=== PATIENT | female | born 1990 | race Caucasian/White ===

== ENCOUNTER 2019-05-14 10:30 | Emergency (ER) | payer OTHER, MEDICAID, SELFPAY ==
[2019-05-14 10:56] VITALS: BP 114/71; PULSE 67; RESP 18; TEMP 36.4; O2SAT 98
[2019-05-14 11:36] LABS: Add Manual Diff / Slide Review NO; Basophils Absolute Auto 100 /uL (0-100); Basophils Percent Auto 1.1 % (0-2); Eosinophils Absolute Auto 500 /uL (0-450); Eosinophils Percent Auto 6.9 % (2-4); Hematocrit 41.2 % (36-46); Hemoglobin 14.4 g/dL (12.0-16.0); Lymphocytes Absolute Auto 3300 /uL (1100-4500); Lymphocytes Percent Auto 46.4 % (25-40); Mean Corpuscular HGB Conc 34.9 % (30-36); Mean Corpuscular Volume 82.9 fL (80-100); Monocytes Absolute Auto 500 /uL (0-900); Monocytes Percent Auto 7.6 % (3-14); Neutrophils Absolute Auto 2700 /uL (1500-7000); Platelet Count 275 X10^3/uL (150-400); Red Blood Cell Count 4.96 X10^6/uL (4.0-5.2); Red Cell Distribution Width 13.4 % (11.6-14.8); White Blood Cell Count 7.1 X10^3/uL (4.5-11.0)
[2019-05-14 11:45] LABS: Prothrombin Time 11.5 SECONDS (10.1-12.7)
[2019-05-14 11:46] LABS: Alanine Aminotransferase 27 IU/L (9-52); Albumin 4.8 g/dL (3.5-5.0); Albumin Globulin Ratio 1.3 (1.0-2.8); Alkaline Phosphatase 51 U/L (38-126); Aspartate Aminotransferase 25 IU/L (14-36); Bilirubin Total 0.5 mg/dL (0.2-1.3); Blood Urea Nitrogen 9 mg/dL (7-17); Carbon Dioxide 30 mmol/L (22-32); Chloride 100 mmol/L (98-107); Estimated Glomerular Filt Rate > 60.0 mL/min (>60); Globulin 3.7 g/dL (1.7-4.1); Glucose 102 mg/dL (70-100); HEMOLYSIS < 15 (0-50); Lipase 38 U/L (23-300); Potassium 4.2 mmol/L (3.4-5.1); Sodium 141 mmol/L (137-145); Total Protein 8.5 g/dL (6.3-8.2)
[2019-05-14 11:47] LABS: PTT Partial Thromboplastin Tim 35 SECONDS (26.4-36.2)
--- NOTE | 2019-05-14 12:04 | ED_ITS ---
HPI - Nausea/Vomiting/Diarrhea <CHANG Youssef - Last Filed: 05/14/19 21:23> General Chief complaint: Nausea/Vomiting/Diarrhea Stated complaint: vomiting,light headed, diarrhea,weakness Time Seen by Provider: 05/14/19 11:43 Source: patient Mode of arrival: Ambulatory Limitations: no limitations History of Present Illness HPI Narrative: 28-year-old female with a history of anxiety, presents emergency department today complaining of nausea, vomiting, diarrhea, and epigastric pain for the past 3 months. She states it is intermittent and worse during the morning in the evening when she lays down, she also reports a sore throat at this time. She states she has been to the emergency department an urgent care of the past 3 months and has been given Zofran and but that does not help her symptoms. She states her symptoms have been worse the past 4 days. Patient reports having occasional palpitations and increased weakness the past week. She also reports feeling chilled recently.. She denies any fevers, chest pain, shortness of breath, cough, blood in her vomit, blood in her stool, lower leg swelling, trauma, or other complaints. She states she has been taking Tylenol for her headache very frequently the last week, she states she drinks a lot of coffee, and has had increased stress in her life lately. Related Data Previous Rx's Medication Instructions Recorded omeprazole 20 mg PO DAILY #14 cap 05/14/19 Allergies Allergy/AdvReac Type Severity Reaction Status Date / Time No Known Drug Allergies Allergy Verified 05/14/19 10:56 Review of Systems <CHANG Youssef - Last Filed: 05/14/19 21:23> Review of Systems Narrative: REVIEW OF SYSTEMS: GENERAL: Denies fever, chills, malaise, or wt. loss. HENT: No head trauma, sore throat, or dysphagia. EYES: No loss of vision, double vision, eye pain, or irritation. CARDIOVASCULAR: States occasional palpitations, see HPI. RESPIRATORY: No shortness of breath or cough. GASTROINTESTINAL: Complains of abdominal pain, see HPI GENITOURINARY: No flank pain, urinary incontinence, hesitancy, frequency, or dysuria. [No vaginal discharge or dyspareunia. Denies concerns for STIs] MUSCULOSKELETAL: No pain, weakness, or trauma. INTEGUMENTARY: No rash, lesions, or pruritus. NEURO: No numbness, tingling, memory loss, confusion, or headaches. PSYCH: No behavior or mood changes. PFSH <CHANG Youssef - Last Filed: 05/14/19 21:23> Medical History No significant medical problems (Acute) Social History Smoking Status: Current every day smoker Social History Smoking Status: Current every day smoker Exam <CHANG Youssef - Last Filed: 05/14/19 21:23> Initial Vital Signs Initial Vital Signs: Vital Signs Temperature 97.6 F 05/14/19 10:56 Pulse Rate 67 05/14/19 10:56 Respiratory Rate 18 05/14/19 10:56 Blood Pressure 114/71 05/14/19 10:56 Pulse Oximetry 98 05/14/19 10:56 PHYSICAL EXAMINATION: GENERAL: Well groomed, alert, and cooperative. Answers questions promptly and appropriately. Vital signs noted. HENT: Normocephalic, atraumatic. Hearing intact. Oral mucosa is pink and moist. EYES: Conjunctiva pink, sclera white, no periorbital swelling. CARDIOVASCULAR: S1 and S2 sounds normal. Regular rate and rhythm, no murmurs, clicks, or bruits. No pedal edema. RESPIRATORY: Normal respiratory rate, trachea midline, airway patent. No stridor, nasal flaring or accessory muscle use. Lungs are clear in all wilson without wheeze, rhonchi, or crackles. GASTROINTESTINAL: Bowel sounds normoactive. Abdomen is soft and tenderness with palpation to epigastric area. No organomegaly, no palpable masses. GENITALURINARY: No flank tenderness. MUSCULOSKELETAL: Normal gait and coordination. Equal tone and mass bilaterally. EXTREMITIES: CMS intact, no pedal edema. SKIN: Warm, dry, soft, appropriate color for ethnicity. No lesions, rashes, or wounds. NEURO: Alert and Oriented X 3. Good coordination. No ataxia, or sensory deficits, or cognitive issues. PSYCH: Appropriate affect and mood. <Kimberly Agosto DO - Last Filed: 05/15/19 08:49> Initial Vital Signs Initial Vital Signs: Vital Signs Temperature 97.6 F 05/14/19 10:56 Pulse Rate 67 05/14/19 10:56 Respiratory Rate 18 05/14/19 10:56 Blood Pressure 114/71 05/14/19 10:56 Pulse Oximetry 98 05/14/19 10:56 Course <CHANG Youssef - Last Filed: 05/14/19 21:23> Course Course Narrative: Patient reported improved symptoms after administration of medication in GI cocktail. Extensive conversation was had with patient how she may benefit having conversation with her primary care provider about further testing such as an EEG and or H pylori test. Orders Ordered: Discontinued Medications Al Hydrox/Mg Hydrox/Simethicone 20 ml/ Lidocaine HCl 15 ml 0 ml PO NOW ONE Stop: 05/14/19 12:01 Last Admin: 05/14/19 12:13 Dose: 35 ml Documented by: WILFREDO Sodium Chloride (Normal Saline 0.9%) 1,000 mls @ 1,000 mls/hr IV BOLUS ONE Stop: 05/14/19 12:59 Last Infusion: 05/14/19 13:33 Dose: 0 mls/hr Documented by: Admin: 05/14/19 12:13 Dose: 1,000 mls/hr Documented by: WILFREDO Pantoprazole Sodium (Protonix) 40 mg IV NOW ONE Stop: 05/14/19 12:01 Last Admin: 05/14/19 12:13 Dose: 40 mg Documented by: WILFREDO Vital Signs Vital signs: Vital Signs - 8 hr 05/14/19 13:30 Pulse Rate 72 Respiratory Rate 17 Blood Pressure 118/66 Pulse Oximetry 99 <Kimberly Agosto DO - Last Filed: 05/15/19 08:49> Orders Ordered: Discontinued Medications Al Hydrox/Mg Hydrox/Simethicone 20 ml/ Lidocaine HCl 15 ml 0 ml PO NOW ONE Stop: 05/14/19 12:01 Last Admin: 05/14/19 12:13 Dose: 35 ml Documented by: WILFREDO Sodium Chloride (Normal Saline 0.9%) 1,000 mls @ 1,000 mls/hr IV BOLUS ONE Stop: 05/14/19 12:59 Last Infusion: 05/14/19 13:33 Dose: 0 mls/hr Documented by: Admin: 05/14/19 12:13 Dose: 1,000 mls/hr Documented by: WILFREDO Pantoprazole Sodium (Protonix) 40 mg IV NOW ONE Stop: 05/14/19 12:01 Last Admin: 05/14/19 12:13 Dose: 40 mg Documented by: WILFREDO Vital Signs Vital signs: Vital Signs - 8 hr 05/14/19 13:30 Pulse Rate 72 Respiratory Rate 17 Blood Pressure 118/66 Pulse Oximetry 99 MDM - Nausea/Vomiting/Diarrhea <CHANG Youssef - Last Filed: 05/14/19 21:23> Medical Records Attestation: I reviewed the patient's medical records. Lab Data Attestation: I reviewed the patient's lab results. Result diagrams: 05/14/19 11:23 05/14/19 11:23 Labs: Lab Results 05/14/19 05/14/19 05/14/19 Range/Units 11:23 11:23 11:23 WBC 7.1 (4.5-11.0) X10^3/uL RBC 4.96 (4.0-5.2) X10^6/uL Hgb 14.4 (12.0-16.0) g/dL Hct 41.2 (36-46) % MCV 82.9 (80-100) fL MCH 29.0 (26-34) PG MCHC 34.9 (30-36) % RDW 13.4 (11.6-14.8) % Plt Count 275 (150-400) X10^3/uL Neut % (Auto) 38.0 L (50-75) % Lymph % (Auto) 46.4 H (25-40) % Bradford % (Auto) 7.6 (3-14) % Eos % (Auto) 6.9 H (2-4) % Baso % (Auto) 1.1 (0-2) % Neut # (Auto) 2700 (0799-6889) /uL Lymph # (Auto) 3300 (4935-6883) /uL Bradford # (Auto) 500 (0-900) /uL Eos # (Auto) 500 H (0-450) /uL Baso # (Auto) 100 (0-100) /uL PT 11.5 (10.1-12.7) SECONDS INR 1.0 (0.9-1.3) APTT 35 (26.4-36.2) SECONDS Sodium 141 (137-145) mmol/L Potassium 4.2 (3.4-5.1) mmol/L Chloride 100 (98-107) mmol/L Carbon Dioxide 30 (22-32) mmol/L BUN 9 (7-17) mg/dL Creatinine 0.60 (0.52-1.04) mg/dL Estimated GFR > 60.0 (>60) mL/min BUN/Creatinine Ratio 15.0 (6-22) Glucose 102 H (70-100) mg/dL Calcium 10.0 (8.4-10.2) mg/dL Total Bilirubin 0.5 (0.2-1.3) mg/dL AST 25 (14-36) IU/L ALT 27 (9-52) IU/L Alkaline Phosphatase 51 (38-126) U/L Total Protein 8.5 H (6.3-8.2) g/dL Albumin 4.8 (3.5-5.0) g/dL Globulin 3.7 (1.7-4.1) g/dL Albumin/Globulin Ratio 1.3 (1.0-2.8) Lipase 38 (23-300) U/L TSH (0.47-4.68) uIU/mL 05/14/19 Range/Units 11:23 WBC (4.5-11.0) X10^3/uL RBC (4.0-5.2) X10^6/uL Hgb (12.0-16.0) g/dL Hct (36-46) % MCV (80-100) fL MCH (26-34) PG MCHC (30-36) % RDW (11.6-14.8) % Plt Count (150-400) X10^3/uL Neut % (Auto) (50-75) % Lymph % (Auto) (25-40) % Bradford % (Auto) (3-14) % Eos % (Auto) (2-4) % Baso % (Auto) (0-2) % Neut # (Auto) (4930-2606) /uL Lymph # (Auto) (9532-9200) /uL Bradford # (Auto) (0-900) /uL Eos # (Auto) (0-450) /uL Baso # (Auto) (0-100) /uL PT (10.1-12.7) SECONDS INR (0.9-1.3) APTT (26.4-36.2) SECONDS Sodium (137-145) mmol/L Potassium (3.4-5.1) mmol/L Chloride (98-107) mmol/L Carbon Dioxide (22-32) mmol/L BUN (7-17) mg/dL Creatinine (0.52-1.04) mg/dL Estimated GFR (>60) mL/min BUN/Creatinine Ratio (6-22) Glucose (70-100) mg/dL Calcium (8.4-10.2) mg/dL Total Bilirubin (0.2-1.3) mg/dL AST (14-36) IU/L ALT (9-52) IU/L Alkaline Phosphatase (38-126) U/L Total Protein (6.3-8.2) g/dL Albumin (3.5-5.0) g/dL Globulin (1.7-4.1) g/dL Albumin/Globulin Ratio (1.0-2.8) Lipase (23-300) U/L TSH 1.65 (0.47-4.68) uIU/mL Point of Care Testing Test Results Negative Urine Dip Bedside Urine Glucose Negative Bedside Urine Bilirubin - Negative Bedside Urine Ketone - Negative Urine Specific Calvin 1.010 Bedside Urine Occult Blood - Negative Bedside Urine pH 7.0 Bedside Urine Protein - Negative Bedside Urine Urobilinogen - Negative Bedside Urine Nitrite - Negative Bedside Urine Leukocytes - Negative Esterase ECG Data Interpretation: Normal sinus rhythm, rate 65, AR interval 179, QTC 418. No ST depression or ST elevation, no T-wave abnormality. No ectopy EKG was also viewed by DR. Agosto. [facility] Narrative Medical decision making narrative: I suspect that patient's symptoms are most likely caused by GERD or gastric ulcer (epigastric pain, burning and gnawing pain, intermittent and pain, nausea and vomiting, and sore throat while sleeping, increased stress, family history of getting gastric ulcers, consumption of a large amounts of caffeine, and decrease of symptoms with GI cocktail administration). I have very little concerns for GI bleed due to lack of reported blood in stool or vomit, normal H&H, lack of systemic symptoms such as dizziness. Less likely cholecystitis, pancreatitis, IBD, or appendicitis due to normal white blood cell count and lack of tenderness to palpation of other quadrants of the abdomen. Do not suspect cardiac issues due to chest pain and shortness of breath as well as an wound EKG. Strict return precautions were giv en and follow-up instructions discussed. <Kimberly Agosto, DO - Last Filed: 05/15/19 08:49> Lab Data Labs: Lab Results 05/14/19 05/14/19 05/14/19 Range/Units 11:23 11:23 11:23 WBC 7.1 (4.5-11.0) X10^3/uL RBC 4.96 (4.0-5.2) X10^6/uL Hgb 14.4 (12.0-16.0) g/dL Hct 41.2 (36-46) % MCV 82.9 (80-100) fL MCH 29.0 (26-34) PG MCHC 34.9 (30-36) % RDW 13.4 (11.6-14.8) % Plt Count 275 (150-400) X10^3/uL Neut % (Auto) 38.0 L (50-75) % Lymph % (Auto) 46.4 H (25-40) % Bradford % (Auto) 7.6 (3-14) % Eos % (Auto) 6.9 H (2-4) % Baso % (Auto) 1.1 (0-2) % Neut # (Auto) 2700 (0581-7453) /uL Lymph # (Auto) 3300 (2269-8172) /uL Bradford # (Auto) 500 (0-900) /uL Eos # (Auto) 500 H (0-450) /uL Baso # (Auto) 100 (0-100) /uL PT 11.5 (10.1-12.7) SECONDS INR 1.0 (0.9-1.3) APTT 35 (26.4-36.2) SECONDS Sodium 141 (137-145) mmol/L Potassium 4.2 (3.4-5.1) mmol/L Chloride 100 (98-107) mmol/L Carbon Dioxide 30 (22-32) mmol/L BUN 9 (7-17) mg/dL Creatinine 0.60 (0.52-1.04) mg/dL Estimated GFR > 60.0 (>60) mL/min BUN/Creatinine Ratio 15.0 (6-22) Glucose 102 H (70-100) mg/dL Calcium 10.0 (8.4-10.2) mg/dL Total Bilirubin 0.5 (0.2-1.3) mg/dL AST 25 (14-36) IU/L ALT 27 (9-52) IU/L Alkaline Phosphatase 51 (38-126) U/L Total Protein 8.5 H (6.3-8.2) g/dL Albumin 4.8 (3.5-5.0) g/dL Globulin 3.7 (1.7-4.1) g/dL Albumin/Globulin Ratio 1.3 (1.0-2.8) Lipase 38 (23-300) U/L TSH (0.47-4.68) uIU/mL 05/14/19 Range/Units 11:23 WBC (4.5-11.0) X10^3/uL RBC (4.0-5.2) X10^6/uL Hgb (12.0-16.0) g/dL Hct (36-46) % MCV (80-100) fL MCH (26-34) PG MCHC (30-36) % RDW (11.6-14.8) % Plt Count (150-400) X10^3/uL Neut % (Auto) (50-75) % Lymph % (Auto) (25-40) % Bradford % (Auto) (3-14) % Eos % (Auto) (2-4) % Baso % (Auto) (0-2) % Neut # (Auto) (7447-3897) /uL Lymph # (Auto) (4312-6265) /uL Bradford # (Auto) (0-900) /uL Eos # (Auto) (0-450) /uL Baso # (Auto) (0-100) /uL PT (10.1-12.7) SECONDS INR (0.9-1.3) APTT (26.4-36.2) SECONDS Sodium (137-145) mmol/L Potassium (3.4-5.1) mmol/L Chloride (98-107) mmol/L Carbon Dioxide (22-32) mmol/L BUN (7-17) mg/dL Creatinine (0.52-1.04) mg/dL Estimated GFR (>60) mL/min BUN/Creatinine Ratio (6-22) Glucose (70-100) mg/dL Calcium (8.4-10.2) mg/dL Total Bilirubin (0.2-1.3) mg/dL AST (14-36) IU/L ALT (9-52) IU/L Alkaline Phosphatase (38-126) U/L Total Protein (6.3-8.2) g/dL Albumin (3.5-5.0) g/dL Globulin (1.7-4.1) g/dL Albumin/Globulin Ratio (1.0-2.8) Lipase (23-300) U/L TSH 1.65 (0.47-4.68) uIU/mL Point of Care Testing Test Results Negative Urine Dip Bedside Urine Glucose Negative Bedside Urine Bilirubin - Negative Bedside Urine Ketone - Negative Urine Specific Calvin 1.010 Bedside Urine Occult Blood - Negative Bedside Urine pH 7.0 Bedside Urine Protein - Negative Bedside Urine Urobilinogen - Negative Bedside Urine Nitrite - Negative Bedside Urine Leukocytes - Negative Esterase Discharge Plan Departure Patient Disposition: Home Clinical Impression: Gastroesophageal reflux disease Qualifiers: Esophagitis presence: without esophagitis Qualified Code(s): K21.9 - Gastro- esophageal reflux disease without esophagitis Nausea & vomiting Qualifiers: Vomiting type: unspecified Vomiting Intractability: non-intractable Qualified Code(s): R11.2 - Nausea with vomiting, unspecified Discharge Date/Time: 05/14/19 13:54 Instructions: DI for Gastroesophageal Reflux Disease (GERD), DI for Gastric Ulcer Activity Restrictions/Additional Instructions: Thank you for entrusting me with your care today. As discussed, your labs and EKG are not concerning. It is possible that you may have GERD and or a stomach ulcer due to her symptoms. However, more testing such as an endoscopy and or an H pylori test is needed to determine this. Please follow up with her primary care provider as scheduled for further discussion of these tests if indicated. Start taking omeprazole 20 mg daily for the next 2 weeks. You may take ranitidine/Zantac 150mg twice a day for the next 4 days. Decrease your intake of caffeine, chocolate, alcohol, and citrus. Return to the emergency department if he develops chest pain, high fevers, shortness of breath, syncope, blood in your vomit or stool, or other concerning symptoms. I have sent your prescription of omeprazole to [facility]. Prescriptions: New omeprazole 20 mg capsule,delayed release(DR/EC) 20 mg PO DAILY Qty: 14 RF: 0 Referrals: Marj Bryan PA-C [Primary Care Provider] -
[2019-05-14 12:05] VITALS: BP 112/69; PULSE 64; RESP 16; O2SAT 99
[2019-05-14] MEDS: MAG HYDROX/ALUMINUM/SIMETH SUS 20 ML, LIDOCAINE VISCOUS 2% 15 ML PO (12:13)
[2019-05-14] MEDS: SODIUM CHLORIDE 0.9% 1,000 ML 1000 ML IV (12:13)
[2019-05-14] MEDS: PANTOPRAZOLE 40 MG VIAL IV (12:13)
[2019-05-14 12:47] LABS: Thyroid Stimulating Hormone 1.65 uIU/mL (0.47-4.68)
[2019-05-14 13:30] VITALS: BP 118/66; PULSE 72; RESP 17; O2SAT 99
== END 2019-05-14 13:54 | disposition home or self-care (01) ==
PROVIDERS: Emergency Medicine; Emergency Provider Nurse Practitioner; PCP Physician Assistant
DX: K21.9 Gastro-esophageal reflux disease without esophagitis (principal); R11.2 Nausea with vomiting, unspecified; R10.13 Epigastric pain
CPT/HCPCS: 36415; 80053; 81003; 81025; 83690; 84443; 85025; 85610; 85730; 93005; 96361; 96374; 99283; 99284; C9113